=== PATIENT | female | born 1955 | race Caucasian/White ===

== ENCOUNTER 2016-08-08 10:33 | Emergency (ER) | payer OTHER ==
[~2016-08-08] VITALS: Ht 170.2 cm; Wt 84.1 kg
[~2016-08-08 10:33] MED LIST: IBUP200C5 PO; METF500T4 PO; OXYB5 PO; VICODIN
[2016-08-08] MEDS ORDERED: INSLAN SQ (10:46)
[2016-08-08] MEDS ORDERED: BUPR100T13 PO (10:46)
[2016-08-08] MEDS ORDERED: NICO2LOZ PO (10:46)
[2016-08-08] MEDS ORDERED: PIOG30TA2 PO (10:46)
[2016-08-08] MEDS ORDERED: ATOR20TA65 PO (10:46)
[2016-08-08] MEDS ORDERED: LISI1TAB11 PO (10:46)
[2016-08-08 10:47] LABS: GLUCOSE,POINT OF CARE 150 MG/DL (70-110)
[2016-08-08] MEDS ORDERED: SODIUM CHLORIDE 0.9% 1,000 ML IV ONE (11:00)
[2016-08-08] MEDS ORDERED: LOPERAMIDE HCL 2 MG CAPSULE PO ONE (11:00)
[2016-08-08] MEDS ORDERED: ONDANSETRON HCL 4 MG/2 ML VIAL IVP ONE (11:00)
[2016-08-08 11:50] LABS: BASOPHILS # (AUTO) 0.02 K/uL (0.00-0.20); BASOPHILS % (AUTO) 0.2 % (0.0-2.0); EOSINOPHILS # (AUTO) 0.09 K/uL (0.00-0.70); EOSINOPHILS % (AUTO) 0.77 % (1.0-6.0); HEMATOCRIT 44.8 % (36-46); HEMOGLOBIN 14.7 g/dL (12.0-16.0); LYMPHOCYTES # (AUTO) 2.4 K/uL (1.0-4.8); LYMPHOCYTES % (AUTO) 19.8 % (22.0-44.0); MEAN CORPUSCULAR HEMOGLOBIN 29.3 pg (26.0-34.0); MEAN CORPUSCULAR HGB CONC 32.9 G/dL (31.0-37.0); MEAN CORPUSCULAR VOLUME 89 fL (80-100); MONOCYTES # (AUTO) 0.4 K/uL (0.1-1.0); MONOCYTES % (AUTO) 3.6 % (2.0-9.0); NEUTROPHILS # (AUTO) 9.2 K/uL (1.8-7.7); NEUTROPHILS % (AUTO) 75.7 % (40.0-70.0); PLATELET COUNT (AUTO) 212 K/uL (150-450); RED BLOOD CELL COUNT(AUTO) 5.04 MIL/uL (4.00-5.20); RED CELL DISTRIBUTION WIDTH 13.2 % (11.5-14.5); WHITE BLOOD COUNT (AUTO) 12.1 K/uL (4.5-11.0)
[2016-08-08 12:02] LABS: CALCIUM, TOTAL 9.4 mg/dL (8.8-10.5); CREATININE 0.98 mg/dL (0.60-1.30); POTASSIUM 3.5 mmol/L (3.5-5.1)
[2016-08-08 12:08] LABS: ALBUMIN 3.5 g/dL (3.4-5.0); BILIRUBIN,TOTAL 0.3 mg/dL (0.1-1.0); TOTAL PROTEIN, SERUM 7.5 g/dL (6.4-8.2)
[2016-08-08] MEDS ORDERED: METOCLOPRAMIDE HCL 5 MG/ML 2 ML VIAL IVP ONE (13:00)
[2016-08-08 14:00] VITALS: BP 117/72
== END 2016-08-08 14:03 | disposition home or self-care (01) ==
LOC: EMS 10:35
DX: K52.9 Noninfective gastroenteritis and colitis, unspecified (principal); K21.9 Gastro-esophageal reflux disease without esophagitis; I10 Essential (primary) hypertension; J45.909 Unspecified asthma, uncomplicated; E11.9 Type 2 diabetes mellitus without complications; F17.210 Nicotine dependence, cigarettes, uncomplicated; Z88.5 Allergy status to narcotic agent; Z79.4 Long term (current) use of insulin
CPT/HCPCS: 36415; 80053; 82962; 85025; 96361; 96374; 96375; 99284; J2405; J2765; J7030

== ENCOUNTER 2016-09-27 10:45 | Emergency (ER) | payer OTHER ==
[~2016-09-27] VITALS: Ht 170.2 cm; Wt 90.0 kg
[~2016-09-27 10:45] MED LIST changes: +ATOR20TA65 PO; +BUPR100T13 PO; -IBUP200C5 PO; +INSLAN SQ; +LISI1TAB11 PO; +NICO2LOZ PO; -OXYB5 PO; +PIOG30TA2 PO; -VICODIN
[2016-09-27] MEDS ORDERED: PIOG30TA2 PO (11:00)
[2016-09-27] MEDS ORDERED: METF500T4 PO (11:00)
[2016-09-27] MEDS ORDERED: ATOR40TA28 PO (11:00)
[2016-09-27] MEDS ORDERED: ALBU8HFA4 IH (11:00)
[2016-09-27] MEDS ORDERED: INSLAN SQ (11:00)
[2016-09-27] MEDS ORDERED: OMEP20 PO (11:00)
[2016-09-27] MEDS ORDERED: CALC-51 PO (11:00)
[2016-09-27] MEDS ORDERED: LISI-660 PO (11:00)
[2016-09-27 11:06] LABS: GLUCOSE,POINT OF CARE 168 MG/DL (70-110)
[2016-09-27] MEDS ORDERED: HYDROCODONE/ACETAMINOPHEN 5-325 MG TABLET PO ONE (12:30)
[2016-09-27 13:58] VITALS: BP 139/79
== END 2016-09-27 14:02 | disposition home or self-care (01) ==
LOC: EMS 10:47
DX: S93.601A Unspecified sprain of right foot, initial encounter (principal); I10 Essential (primary) hypertension; K21.9 Gastro-esophageal reflux disease without esophagitis; E11.9 Type 2 diabetes mellitus without complications; J45.909 Unspecified asthma, uncomplicated; F17.210 Nicotine dependence, cigarettes, uncomplicated; Z79.4 Long term (current) use of insulin; X58.XXXA Exposure to other specified factors, initial encounter; Y93.89 Activity, other specified; Y92.89 Other specified places as the place of occurrence of the external cause; Y99.8 Other external cause status
CPT/HCPCS: 82962; 93971; 99284

== ENCOUNTER 2016-12-31 02:25 | Emergency (ER) | payer OTHER ==
[~2016-12-31] VITALS: Ht 170.2 cm; Wt 95.5 kg
[~2016-12-31 02:25] MED LIST changes: +ALBU8HFA4 IH; -ATOR20TA65 PO; +ATOR40TA28 PO; -BUPR100T13 PO; +CALC-1038 PO; +LISI-660 PO; -LISI1TAB11 PO; -NICO2LOZ PO; +OMEP20 PO; +PIOG30TA10 PO; -PIOG30TA2 PO
[2016-12-31 02:42] LABS: GLUCOSE,POINT OF CARE 277 MG/DL (70-110)
[2016-12-31] MEDS ORDERED: IBUPROFEN 600 MG TABLET PO ONE (03:30)
[2016-12-31] MEDS ORDERED: HYDROCODONE/ACETAMINOPHEN 5-325 MG TABLET PO ONE (03:30)
[2016-12-31 03:32] VITALS: BP 118/85
== END 2016-12-31 03:37 | disposition home or self-care (01) ==
LOC: EMS 02:27
DX: T50.B95A Adverse effect of other viral vaccines, initial encounter (principal); E11.65 Type 2 diabetes mellitus with hyperglycemia; K21.9 Gastro-esophageal reflux disease without esophagitis; I10 Essential (primary) hypertension; J45.909 Unspecified asthma, uncomplicated; F17.210 Nicotine dependence, cigarettes, uncomplicated; Z88.6 Allergy status to analgesic agent; Y92.89 Other specified places as the place of occurrence of the external cause
CPT/HCPCS: 82962; 99283

== ENCOUNTER 2017-04-11 16:09 | Emergency (ER) | payer OTHER ==
[~2017-04-11] VITALS: Ht 170.2 cm; Wt 90.5 kg
[2017-04-11 16:48] LABS: GLUCOSE,POINT OF CARE 305 MG/DL (70-110)
[2017-04-11 17:58] LABS: INFLUENZA TYPE A NEGATIVE FOR TYPE A (NEGATIVE); INFLUENZA TYPE B NEGATIVE FOR TYPE B (NEGATIVE)
[2017-04-11] MEDS ORDERED: SODIUM CHLORIDE 0.9% 1,000 ML IV ONE ×2 (19:45→21:15)
[2017-04-11 20:04] LABS: BASOPHILS % (AUTO) 0.1 % (0.0-2.0); EOSINOPHILS % (AUTO) 0.5 % (1.0-6.0); HEMATOCRIT 40.9 % (36-46); HEMOGLOBIN 13.9 g/dL (12.0-16.0); LYMPHOCYTES # (AUTO) 0.7 K/uL (1.0-4.8); LYMPHOCYTES % (AUTO) 9.5 % (22.0-44.0); MEAN CORPUSCULAR HEMOGLOBIN 30.5 pg (26.0-34.0); MEAN CORPUSCULAR HGB CONC 33.9 G/dL (31.0-37.0); MEAN CORPUSCULAR VOLUME 90 fL (80-100); MONOCYTES # (AUTO) 0.2 K/uL (0.1-1.0); MONOCYTES % (AUTO) 3.1 % (2.0-9.0); NEUTROPHILS # (AUTO) 6.8 K/uL (1.8-7.7); PLATELET COUNT (AUTO) 176 K/uL (150-450); RED BLOOD CELL COUNT(AUTO) 4.55 MIL/uL (4.00-5.20); RED CELL DISTRIBUTION WIDTH 13.4 % (11.5-14.5)
[2017-04-11 20:07] LABS: ANION GAP 11 mmol/L (8-16); CALCIUM, TOTAL 8.8 mg/dL (8.8-10.5); CARBON DIOXIDE 25 mmol/L (22-29); CHLORIDE 97 mmol/L (98-107); CREATININE 0.91 mg/dL (0.60-1.30); GLOMERULAR FILTR. RATE CALC > 60 mL/min (>60); GLUCOSE,RANDOM 363 mg/dL (70-110); POTASSIUM 3.4 mmol/L (3.5-5.1); SODIUM SERUM 133 mmol/L (136-145); UREA NITROGEN, BLOOD 9 mg/dL (7-18)
[2017-04-11 20:08] LABS: NEUTROPHILS % (AUTO) 86.8 % (40.0-70.0)
[2017-04-11 20:13] LABS: ALANINE AMINOTRANSFERASE 26 U/L (12-78); ALBUMIN 3.2 g/dL (3.4-5.0); ALKALINE PHOSPHATASE 107 U/L (46-116); ASPARTATE AMINOTRANSFERASE 18 U/L (15-37); BILIRUBIN,TOTAL 0.4 mg/dL (0.1-1.0); LIPASE 63 U/L (73-393); TOTAL PROTEIN, SERUM 6.9 g/dL (6.4-8.2)
[2017-04-11 20:30] VITALS: BP 124/83
[2017-04-11 20:47] LABS: GLUCOSE,POINT OF CARE 316 MG/DL (70-110)
[2017-04-11 21:39] LABS: APPEARANCE,URINE CLEAR (CLEAR); BILIRUBIN,URINE NEGATIVE (NEGATIVE); GLUCOSE, URINE (UA) >=1000 mg/dL (NEGATIVE); KETONES,URINE 15 mg/dL (NEGATIVE); LEUKOCYTE ESTERASE ,URINE NEGATIVE (NEGATIVE); NITRATE,URINE NEGATIVE (NEGATIVE); OCCULT BLOOD,URINE NEGATIVE (NEGATIVE); PROTEIN,URINE POS 1+ (NEGATIVE); UROBILINOGEN,URINE 0.2 mg/dL (<=1.0)
[2017-04-11 21:42] LABS: BACTERIA,URINE Rare /HPF (None Seen); RBC,URINE None Seen /HPF (0-2); SQUAMOUS EPITHELIAL CELL,UR Few /LPF (None Seen); WBC,URINE 0-2 /HPF (0-5)
== END 2017-04-11 21:30 | disposition left against medical advice (07) ==
LOC: EMS 16:11
DX: B34.9 Viral infection, unspecified (principal); E11.65 Type 2 diabetes mellitus with hyperglycemia; I10 Essential (primary) hypertension; K21.9 Gastro-esophageal reflux disease without esophagitis; J45.909 Unspecified asthma, uncomplicated; F17.210 Nicotine dependence, cigarettes, uncomplicated; Z88.5 Allergy status to narcotic agent; Z79.4 Long term (current) use of insulin; Z79.899 Other long term (current) drug therapy
CPT/HCPCS: 36415; 80053; 81001; 82009; 82962; 83690; 85025; 87804; 96360; 99284; J7030

== ENCOUNTER 2017-06-23 12:43 | Emergency (ER) | payer OTHER ==
[~2017-06-23] VITALS: Ht 170.2 cm; Wt 90.9 kg
[2017-06-23 12:46] VITALS: BP 153/86
[2017-06-23 12:58] LABS: GLUCOSE,POINT OF CARE 371 MG/DL (70-110)
[2017-06-23 13:29] LABS: BASOPHILS % (AUTO) 1.5 % (0.0-2.0); EOSINOPHILS % (AUTO) 1.7 % (1.0-6.0); HEMATOCRIT 40.2 % (36-46); HEMOGLOBIN 13.5 g/dL (12.0-16.0); LYMPHOCYTES # (AUTO) 2.2 K/uL (1.0-4.8); LYMPHOCYTES % (AUTO) 30.9 % (22.0-44.0); MEAN CORPUSCULAR HEMOGLOBIN 29.8 pg (26.0-34.0); MEAN CORPUSCULAR HGB CONC 33.5 G/dL (31.0-37.0); MEAN CORPUSCULAR VOLUME 89 fL (80-100); MONOCYTES # (AUTO) 0.4 K/uL (0.1-1.0); MONOCYTES % (AUTO) 5.8 % (2.0-9.0); NEUTROPHILS # (AUTO) 4.2 K/uL (1.8-7.7); NEUTROPHILS % (AUTO) 60.1 % (40.0-70.0); PLATELET COUNT (AUTO) 195 K/uL (150-450); RED BLOOD CELL COUNT(AUTO) 4.52 MIL/uL (4.00-5.20); RED CELL DISTRIBUTION WIDTH 13.6 % (11.5-14.5)
[2017-06-23 13:39] LABS: ANION GAP 11 mmol/L (8-16); CALCIUM, TOTAL 8.6 mg/dL (8.8-10.5); CARBON DIOXIDE 25 mmol/L (22-29); CHLORIDE 103 mmol/L (98-107); CREATININE 0.89 mg/dL (0.60-1.30); GLOMERULAR FILTR. RATE CALC > 60 mL/min (>60); GLUCOSE,RANDOM 349 mg/dL (70-110); POTASSIUM 3.8 mmol/L (3.5-5.1); SODIUM SERUM 139 mmol/L (136-145); UREA NITROGEN, BLOOD 12 mg/dL (7-18)
[2017-06-23 13:45] LABS: ALANINE AMINOTRANSFERASE 31 U/L (12-78); ALBUMIN 3.1 g/dL (3.4-5.0); ALKALINE PHOSPHATASE 97 U/L (46-116); ASPARTATE AMINOTRANSFERASE 21 U/L (15-37); BILIRUBIN,TOTAL 0.2 mg/dL (0.1-1.0); TOTAL PROTEIN, SERUM 6.3 g/dL (6.4-8.2)
[2017-06-23 13:47] LABS: B-TYPE NATRIURETIC PEPTIDE 47 pg/mL (0-100)
== END 2017-06-23 14:26 | disposition home or self-care (01) ==
LOC: EMS 12:45
DX: E11.65 Type 2 diabetes mellitus with hyperglycemia (principal); R07.89 Other chest pain; R60.0 Localized edema; J45.909 Unspecified asthma, uncomplicated; K21.9 Gastro-esophageal reflux disease without esophagitis; I10 Essential (primary) hypertension; F17.210 Nicotine dependence, cigarettes, uncomplicated; Z88.5 Allergy status to narcotic agent; Z79.4 Long term (current) use of insulin; Z71.6 Tobacco abuse counseling
CPT/HCPCS: 82962; 93005; 99285; 99406

== ENCOUNTER 2017-09-16 22:01 | Emergency (ER) | payer OTHER ==
[~2017-09-16] VITALS: Ht 170.2 cm; Wt 90.9 kg
[~2017-09-16 22:01] MED LIST changes: -METF500T4 PO; +METF500T6 PO
[2017-09-16] MEDS ORDERED: BUPR100 PO (22:17)
[2017-09-16] MEDS ORDERED: INSU100I26 SQ (22:17)
[2017-09-16] MEDS ORDERED: LISI1TAB11 PO (22:17)
[2017-09-16 22:25] LABS: GLUCOSE,POINT OF CARE 518 MG/DL (70-110)
[2017-09-16 22:49] LABS: BASOPHILS % (AUTO) 1.1 % (0.0-2.0); EOSINOPHILS % (AUTO) 3.3 % (1.0-6.0); HEMATOCRIT 42.2 % (36-46); HEMOGLOBIN 14.2 g/dL (12.0-16.0); LYMPHOCYTES # (AUTO) 2.1 K/uL (1.0-4.8); LYMPHOCYTES % (AUTO) 35.8 % (22.0-44.0); MEAN CORPUSCULAR HEMOGLOBIN 30.8 pg (26.0-34.0); MEAN CORPUSCULAR HGB CONC 33.7 G/dL (31.0-37.0); MEAN CORPUSCULAR VOLUME 91 fL (80-100); MONOCYTES # (AUTO) 0.4 K/uL (0.1-1.0); MONOCYTES % (AUTO) 6.5 % (2.0-9.0); NEUTROPHILS # (AUTO) 3.1 K/uL (1.8-7.7); NEUTROPHILS % (AUTO) 53.3 % (40.0-70.0); PLATELET COUNT (AUTO) 197 K/uL (150-450); RED BLOOD CELL COUNT(AUTO) 4.61 MIL/uL (4.00-5.20); RED CELL DISTRIBUTION WIDTH 13.1 % (11.5-14.5)
[2017-09-16 22:51] LABS: APPEARANCE,URINE CLEAR (CLEAR); BILIRUBIN,URINE NEGATIVE (NEGATIVE); GLUCOSE, URINE (UA) >=1000 mg/dL (NEGATIVE); KETONES,URINE NEGATIVE (NEGATIVE); LEUKOCYTE ESTERASE ,URINE NEGATIVE (NEGATIVE); NITRATE,URINE NEGATIVE (NEGATIVE); OCCULT BLOOD,URINE NEGATIVE (NEGATIVE); PROTEIN,URINE NEGATIVE (NEGATIVE); UROBILINOGEN,URINE 0.2 mg/dL (<=1.0)
[2017-09-16 22:53] LABS: BACTERIA,URINE Rare /HPF (None Seen); RBC,URINE 0-2 /HPF (0-2); SQUAMOUS EPITHELIAL CELL,UR Few /LPF (None Seen); WBC,URINE 0-2 /HPF (0-5)
[2017-09-16 23:09] LABS: ALBUMIN 3.2 g/dL (3.4-5.0); BILIRUBIN,TOTAL 0.2 mg/dL (0.1-1.0); CALCIUM, TOTAL 8.2 mg/dL (8.8-10.5); TOTAL PROTEIN, SERUM 6.5 g/dL (6.4-8.2)
[2017-09-16] MEDS ORDERED: SODIUM CHLORIDE 0.9% 1,000 ML IV ONE (23:45)
[2017-09-16] MEDS ORDERED: INSULIN REGULAR, HUMAN 100 UNITS/ML IVP ONE (23:45)
[2017-09-17 01:05] LABS: GLUCOSE,POINT OF CARE 197 MG/DL (70-110)
[2017-09-17 01:07] VITALS: BP 135/70
== END 2017-09-17 01:32 | disposition home or self-care (01) ==
LOC: EMS 22:03
DX: E11.65 Type 2 diabetes mellitus with hyperglycemia (principal); R10.13 Epigastric pain; E66.9 Obesity, unspecified; J45.909 Unspecified asthma, uncomplicated; I10 Essential (primary) hypertension; F17.210 Nicotine dependence, cigarettes, uncomplicated; K21.9 Gastro-esophageal reflux disease without esophagitis; Z68.31 Body mass index [BMI] 31.0-31.9, adult; Z88.5 Allergy status to narcotic agent; Z79.4 Long term (current) use of insulin
CPT/HCPCS: 36415; 80053; 81001; 82962; 83690; 84484; 85025; 93005; 96361; 96374; 99285; J1815; J7030

== ENCOUNTER 2018-02-08 07:41 | Emergency (ER) | payer OTHER ==
[~2018-02-08] VITALS: Ht 170.2 cm; Wt 79.5 kg
[~2018-02-08 07:41] MED LIST changes: +BUPR100 PO; -INSLAN SQ; +INSU100I26 SQ; +LISI1TAB11 PO; +METF-960 PO; -METF500T6 PO
[2018-02-08 07:47] VITALS: BP 117/76
[2018-02-08 07:53] LABS: GLUCOSE,POINT OF CARE 360 MG/DL (70-110)
== END 2018-02-08 08:46 | disposition left against medical advice (07) ==
LOC: EMS 07:42
DX: L29.9 Pruritus, unspecified (principal); J45.909 Unspecified asthma, uncomplicated; E11.9 Type 2 diabetes mellitus without complications; K21.9 Gastro-esophageal reflux disease without esophagitis; I10 Essential (primary) hypertension; F17.210 Nicotine dependence, cigarettes, uncomplicated; G89.29 Other chronic pain; Z98.890 Other specified postprocedural states

== ENCOUNTER 2018-07-20 19:41 | Emergency (ER) | payer OTHER ==
[~2018-07-20] VITALS: Ht 170.2 cm; Wt 75.0 kg
[~2018-07-20 19:41] MED LIST changes: -LISI1TAB11 PO
[2018-07-20] MEDS ORDERED: OXYB5 PO (20:41)
[2018-07-20 20:43] LABS: GLUCOSE,POINT OF CARE 522 MG/DL (70-110)
[2018-07-20] MEDS ORDERED: INSULIN REGULAR, HUMAN 100 UNITS/ML SQ ONE (21:00)
[2018-07-20 21:27] LABS: EOSINOPHILS % (AUTO) 2.1 % (1.0-6.0); HEMATOCRIT 44.3 % (36-46); HEMOGLOBIN 14.5 g/dL (12.0-16.0); LYMPHOCYTES # (AUTO) 2.4 K/uL (1.0-4.8); LYMPHOCYTES % (AUTO) 37.3 % (22.0-44.0); MEAN CORPUSCULAR HEMOGLOBIN 30.1 pg (26.0-34.0); MEAN CORPUSCULAR HGB CONC 32.7 G/dL (31.0-37.0); MEAN CORPUSCULAR VOLUME 92 fL (80-100); MONOCYTES # (AUTO) 0.4 K/uL (0.1-1.0); MONOCYTES % (AUTO) 6.7 % (2.0-9.0); NEUTROPHILS # (AUTO) 3.4 K/uL (1.8-7.7); NEUTROPHILS % (AUTO) 52.9 % (40.0-70.0); PLATELET COUNT (AUTO) 216 K/uL (150-450); RED BLOOD CELL COUNT(AUTO) 4.81 MIL/uL (4.00-5.20); RED CELL DISTRIBUTION WIDTH 12.9 % (11.5-14.5)
[2018-07-20 21:44] LABS: ALANINE AMINOTRANSFERASE 32 U/L (12-78); ALBUMIN 3.4 g/dL (3.4-5.0); ALKALINE PHOSPHATASE 116 U/L (46-116); ANION GAP 11 mmol/L (8-16); ASPARTATE AMINOTRANSFERASE 17 U/L (15-37); BILIRUBIN,TOTAL 0.2 mg/dL (0.1-1.0); CALCIUM, TOTAL 9.1 mg/dL (8.8-10.5); CARBON DIOXIDE 24 mmol/L (22-29); CHLORIDE 100 mmol/L (98-107); CREATININE 0.81 mg/dL (0.60-1.30); GLOMERULAR FILTR. RATE CALC > 60 mL/min (>60); POTASSIUM 3.4 mmol/L (3.5-5.1); SODIUM SERUM 135 mmol/L (136-145); TOTAL PROTEIN, SERUM 6.9 g/dL (6.4-8.2); UREA NITROGEN, BLOOD 10 mg/dL (7-18)
[2018-07-20 21:53] LABS: GLUCOSE,RANDOM 470 mg/dL (70-110)
[2018-07-20] MEDS ORDERED: KETOROLAC TROMETHAMINE 60 MG/2 ML VIAL IM ONE (22:30)
[2018-07-20 23:09] LABS: GLUCOSE,POINT OF CARE 364 MG/DL (70-110)
[2018-07-20 23:11] VITALS: BP 142/79
== END 2018-07-20 23:23 | disposition home or self-care (01) ==
LOC: EMS 19:42
DX: S20.212A Contusion of left front wall of thorax, initial encounter (principal); E11.65 Type 2 diabetes mellitus with hyperglycemia; I10 Essential (primary) hypertension; K21.9 Gastro-esophageal reflux disease without esophagitis; J45.909 Unspecified asthma, uncomplicated; F17.210 Nicotine dependence, cigarettes, uncomplicated; Z88.5 Allergy status to narcotic agent; W01.0XXA Fall on same level from slipping, tripping and stumbling without subsequent striking against object, initial encounter; Y93.89 Activity, other specified; Y92.89 Other specified places as the place of occurrence of the external cause; Y99.8 Other external cause status
CPT/HCPCS: 36415; 71101; 80053; 82962; 84484; 85025; 96372; 99284; 99406; J1815; J1885

== ENCOUNTER 2018-10-01 12:58 | Emergency (ER) | payer OTHER ==
[~2018-10-01] VITALS: Ht 170.2 cm; Wt 72.7 kg
[~2018-10-01 12:58] MED LIST changes: -ATOR40TA28 PO; -BUPR100 PO; -CALC-1038 PO; -INSU100I26 SQ; -LISI-660 PO; -METF-960 PO; -OMEP20 PO; +OXYB5 PO; -PIOG30TA10 PO
[2018-10-01] MEDS ORDERED: LISI-660 PO (13:18)
[2018-10-01 13:19] LABS: GLUCOSE,POINT OF CARE 497 MG/DL (70-110)
[2018-10-01] MEDS ORDERED: KETOROLAC TROMETHAMINE 30 MG/ML VIAL IVP ONE (13:45)
[2018-10-01] MEDS ORDERED: SODIUM CHLORIDE 0.9% 1,000 ML IV ONE (13:45)
[2018-10-01] MEDS ORDERED: INSULIN REGULAR, HUMAN 100 UNITS/ML IVP ONE (13:45)
[2018-10-01 13:53] LABS: BASOPHILS % (AUTO) 0.9 % (0.0-2.0); EOSINOPHILS % (AUTO) 1.6 % (1.0-6.0); HEMATOCRIT 44.9 % (36-46); HEMOGLOBIN 14.7 g/dL (12.0-16.0); LYMPHOCYTES # (AUTO) 1.7 K/uL (1.0-4.8); LYMPHOCYTES % (AUTO) 25.9 % (22.0-44.0); MEAN CORPUSCULAR HEMOGLOBIN 29.9 pg (26.0-34.0); MEAN CORPUSCULAR HGB CONC 32.7 G/dL (31.0-37.0); MEAN CORPUSCULAR VOLUME 91 fL (80-100); MONOCYTES # (AUTO) 0.4 K/uL (0.1-1.0); MONOCYTES % (AUTO) 6.6 % (2.0-9.0); NEUTROPHILS # (AUTO) 4.3 K/uL (1.8-7.7); PLATELET COUNT (AUTO) 202 K/uL (150-450); RED BLOOD CELL COUNT(AUTO) 4.91 MIL/uL (4.00-5.20); RED CELL DISTRIBUTION WIDTH 13.2 % (11.5-14.5)
[2018-10-01 14:16] LABS: ALBUMIN 2.8 g/dL (3.4-5.0); BILIRUBIN,TOTAL 0.3 mg/dL (0.1-1.0); CALCIUM, TOTAL 8.5 mg/dL (8.8-10.5); CREATININE 1.01 mg/dL (0.60-1.30); POTASSIUM 4.1 mmol/L (3.5-5.1); TOTAL PROTEIN, SERUM 6.4 g/dL (6.4-8.2)
[2018-10-01 15:49] LABS: GLUCOSE,POINT OF CARE 313 MG/DL (70-110)
[2018-10-01 15:59] LABS: APPEARANCE,URINE CLEAR (CLEAR); BILIRUBIN,URINE NEGATIVE (NEGATIVE); GLUCOSE, URINE (UA) >=1000 mg/dL (NEGATIVE); KETONES,URINE NEGATIVE (NEGATIVE); LEUKOCYTE ESTERASE ,URINE NEGATIVE (NEGATIVE); NITRATE,URINE NEGATIVE (NEGATIVE); OCCULT BLOOD,URINE NEGATIVE (NEGATIVE); PROTEIN,URINE NEGATIVE (NEGATIVE); UROBILINOGEN,URINE 0.2 mg/dL (<=1.0)
[2018-10-01 16:21] LABS: BACTERIA,URINE None Seen /HPF (None Seen); RBC,URINE 0-2 /HPF (0-2)
[2018-10-01 16:22] LABS: SQUAMOUS EPITHELIAL CELL,UR Few /LPF (None Seen)
[2018-10-01] MEDS ORDERED: FLUCONAZOLE 150 MG TABLET PO ONE (16:45)
[2018-10-01 16:55] VITALS: BP 118/81
== END 2018-10-01 17:13 | disposition home or self-care (01) ==
LOC: EMS 13:00
DX: E11.65 Type 2 diabetes mellitus with hyperglycemia (principal); N89.8 Other specified noninflammatory disorders of vagina; I10 Essential (primary) hypertension; G89.29 Other chronic pain; J45.909 Unspecified asthma, uncomplicated; K21.9 Gastro-esophageal reflux disease without esophagitis; F17.210 Nicotine dependence, cigarettes, uncomplicated; Z96.651 Presence of right artificial knee joint; Z88.5 Allergy status to narcotic agent; Z79.899 Other long term (current) drug therapy
CPT/HCPCS: 36415; 80053; 81001; 82962; 83690; 85025; 96361; 96374; 96375; 99284; 99406; J1815; J1885; J7030; 51701; 82948

== ENCOUNTER 2019-01-31 09:18 | Inpatient (IN) | payer OTHER ==
[~2019-01-31] VITALS: Ht 165.1 cm; Wt 72.3 kg
[~2019-01-31 09:18] MED LIST changes: +LISI-660 PO
[2019-01-31] MEDS ORDERED: INSNPH SQ (09:26)
[2019-01-31] MEDS ORDERED: KETOROLAC TROMETHAMINE 30 MG/ML VIAL IVP ONE (10:15)
[2019-01-31] MEDS ORDERED: SODIUM CHLORIDE 0.9% 1,000 ML IV ONE ×5 (10:15→16:00)
[2019-01-31 10:17] LABS: BASOPHILS % (AUTO) 0.6 % (0.0-2.0); EOSINOPHILS % (AUTO) 0.1 % (1.0-6.0); HEMATOCRIT 46.6 % (36-46); HEMOGLOBIN 15.6 g/dL (12.0-16.0); LYMPHOCYTES # (AUTO) 1.2 K/uL (1.0-4.8); LYMPHOCYTES % (AUTO) 7.5 % (22.0-44.0); MEAN CORPUSCULAR HEMOGLOBIN 30.3 pg (26.0-34.0); MEAN CORPUSCULAR HGB CONC 33.4 G/dL (31.0-37.0); MEAN CORPUSCULAR VOLUME 91 fL (80-100); MONOCYTES % (AUTO) 6.7 % (2.0-9.0); NEUTROPHILS # (AUTO) 13.3 K/uL (1.8-7.7); NEUTROPHILS % (AUTO) 85.1 % (40.0-70.0); PLATELET COUNT (AUTO) 199 K/uL (150-450); RED BLOOD CELL COUNT(AUTO) 5.14 MIL/uL (4.00-5.20); RED CELL DISTRIBUTION WIDTH 12.6 % (11.5-14.5)
[2019-01-31 10:26] LABS: APPEARANCE,URINE CLOUDY (CLEAR); BILIRUBIN,URINE NEGATIVE (NEGATIVE); GLUCOSE, URINE (UA) >=1000 mg/dL (NEGATIVE); KETONES,URINE TRACE mg/dL (NEGATIVE); LEUKOCYTE ESTERASE ,URINE NEGATIVE (NEGATIVE); NITRATE,URINE NEGATIVE (NEGATIVE); OCCULT BLOOD,URINE SMALL (NEGATIVE); PROTEIN,URINE POS 1+ (NEGATIVE)
[2019-01-31 10:32] LABS: ALBUMIN 3.3 g/dL (3.4-5.0); BILIRUBIN,TOTAL 0.7 mg/dL (0.1-1.0); CREATININE 0.95 mg/dL (0.60-1.30); POTASSIUM 3.2 mmol/L (3.5-5.1); TOTAL PROTEIN, SERUM 7.4 g/dL (6.4-8.2)
[2019-01-31 10:41] LABS: BACTERIA,URINE Many /HPF (None Seen); RBC,URINE 0-2 /HPF (0-2); SQUAMOUS EPITHELIAL CELL,UR Few /LPF (None Seen); WBC,URINE 26-50 /HPF (0-5)
[2019-01-31 11:26] LABS: GLUCOSE,POINT OF CARE 451 MG/DL (70-110)
[2019-01-31] MEDS ORDERED: CIPROFLOXACIN HCL 250 MG TABLET PO ONE (11:30)
[2019-01-31] MEDS ORDERED: POTASSIUM CHLORIDE 20 MEQ ER TABLET PO ONE (11:30)
[2019-01-31] MEDS ORDERED: INSULIN REGULAR, HUMAN 100 UNITS/ML IVP ONE (11:30)
[2019-01-31] MEDS ORDERED: CefTRIAXone 1 GM/DEXTROSE 50 ML IV ONE (11:30)
[2019-01-31 12:41] LABS: GLUCOSE,POINT OF CARE 448 MG/DL (70-110)
[2019-01-31] MEDS ORDERED: ALBU8HFA IH (13:38)
[2019-01-31] MEDS ORDERED: PIPERACILLIN/TAZO 3.375 GM/D5W 50 ML IV ONE (13:45)
[2019-01-31] MEDS ORDERED: ACETAMINOPHEN 1000 MG/ISO-OSM 100 ML IV ONE (13:45)
[2019-01-31] MEDS ORDERED: LORazepam 2 MG/ML VIAL ONE (14:06)
[2019-01-31] MEDS ORDERED: LORazepam 2 MG/ML VIAL IVP ONE (14:15)
[2019-01-31 15:35] LABS: LACTIC ACID 2.7 mmol/L (0.4-2.0)
[2019-01-31] MEDS ORDERED: IPRATROPIUM BROMIDE 0.5 MG/2.5 ML NEB SOLUTION NEB PRN (15:45)
[2019-01-31] MEDS ORDERED: BISACODYL 10 MG RECTAL RECTAL SUPPOSITORY PR PRN (15:45)
[2019-01-31] MEDS ORDERED: MORPHINE SULFATE 2 MG/ML SYRINGE IVP PRN (15:45)
[2019-01-31] MEDS ORDERED: ALBUTEROL SULFATE 2.5 MG/0.5 ML NEB SOLUTION NEB PRN (15:45)
[2019-01-31] MEDS ORDERED: ZOLPIDEM TARTRATE 5 MG TABLET PO PRN (15:45)
[2019-01-31] MEDS ORDERED: MAGNESIUM HYDROXIDE SUSPENSION 30 ML UDCUP PO PRN (15:45)
[2019-01-31] MEDS ORDERED: HYDROCODONE/ACETAMINOPHEN 5-325 MG TABLET PO PRN (15:45)
[2019-01-31] MEDS ORDERED: ONDANSETRON HCL 4 MG/2 ML VIAL IVP PRN (15:45)
[2019-01-31 16:09] LABS: HEMATOCRIT 42.3 % (36-46); HEMOGLOBIN 14.1 g/dL (12.0-16.0); MEAN CORPUSCULAR HGB CONC 33.2 G/dL (31.0-37.0); MEAN CORPUSCULAR VOLUME 91 fL (80-100); PLATELET COUNT (AUTO) 149 K/uL (150-450); RED BLOOD CELL COUNT(AUTO) 4.68 MIL/uL (4.00-5.20); RED CELL DISTRIBUTION WIDTH 12.7 % (11.5-14.5)
[2019-01-31 16:15] LABS: CREATININE 0.95 mg/dL (0.60-1.30); POTASSIUM 3.1 mmol/L (3.5-5.1)
[2019-01-31 16:40] LABS: ALBUMIN 2.6 g/dL (3.4-5.0); BILIRUBIN,TOTAL 0.9 mg/dL (0.1-1.0); TOTAL PROTEIN, SERUM 6.4 g/dL (6.4-8.2)
[2019-01-31 16:56] LABS: GLUCOSE,POINT OF CARE 302 MG/DL (70-110)
[2019-01-31 17:02] LABS: BAND NEUTROPHILS % (MANUAL) 17 % (0-5); LYMPHOCYTES % (MANUAL) 10 % (22-44); MONOCYTES % (MANUAL) 2 % (2-9); SEGMENTED NEUTROPHILS % 71 % (40-70)
[2019-01-31] MEDS ORDERED: DEXTROSE 50%-WATER 25 GM/50 ML SYRINGE IVP PRN (17:15)
[2019-01-31] MEDS: INSULIN LISPRO 100 UNITS/ML SQ PRN ×2 (18:45→21:05)
[2019-01-31] MEDS: HEPARIN SODIUM,PORCINE 5,000 UNITS/ML VIAL SQ SCH (18:46)
[2019-01-31] MEDS: SODIUM CHLORIDE 0.9% 1,000 ML IV SCH (18:47)
[2019-01-31 18:52] VITALS: BP 112/66
[2019-01-31 19:47] VITALS: BP 111/69
[2019-01-31 20:07] LABS: GLUCOMETER DEV NAME(LOC) 5S.1; GLUCOSE,POINT OF CARE 285 MG/DL (70-110)
[2019-01-31] MEDS: DOCUSATE SODIUM 100 MG CAPSULE PO SCH (20:47)
[2019-01-31] MEDS: PIPERACILLIN/TAZO 3.375 GM/D5W 50 ML IV SCH (20:47)
[2019-01-31] MEDS: ACETAMINOPHEN 325 MG TABLET PO PRN (20:55)
[2019-01-31 23:54] VITALS: BP 115/62
[2019-02-01] MEDS: HEPARIN SODIUM,PORCINE 5,000 UNITS/ML VIAL SQ SCH ×4 (00:24→23:50)
[2019-02-01] MEDS: PIPERACILLIN/TAZO 3.375 GM/D5W 50 ML IV SCH ×4 (03:23→20:33)
[2019-02-01] MEDS: SODIUM CHLORIDE 0.9% 1,000 ML IV SCH ×3 (03:23→22:06)
[2019-02-01 05:05] VITALS: BP 136/63
[2019-02-01] MEDS: INSULIN LISPRO 100 UNITS/ML SQ PRN ×4 (06:16→22:16)
[2019-02-01 07:01] LABS: BASOPHILS % (AUTO) 0.6 % (0.0-2.0); EOSINOPHILS % (AUTO) 0.1 % (1.0-6.0); HEMOGLOBIN 14.6 g/dL (12.0-16.0); LYMPHOCYTES # (AUTO) 0.8 K/uL (1.0-4.8); LYMPHOCYTES % (AUTO) 8.3 % (22.0-44.0); MEAN CORPUSCULAR HEMOGLOBIN 30.9 pg (26.0-34.0); MEAN CORPUSCULAR VOLUME 91 fL (80-100); MONOCYTES # (AUTO) 0.5 K/uL (0.1-1.0); MONOCYTES % (AUTO) 5.5 % (2.0-9.0); NEUTROPHILS # (AUTO) 8.6 K/uL (1.8-7.7); PLATELET COUNT (AUTO) 157 K/uL (150-450); RED BLOOD CELL COUNT(AUTO) 4.73 MIL/uL (4.00-5.20)
[2019-02-01 07:08] LABS: NEUTROPHILS % (AUTO) 85.5 % (40.0-70.0)
[2019-02-01 07:13] VITALS: BP 101/63
[2019-02-01 07:31] LABS: ALANINE AMINOTRANSFERASE 31 U/L (12-78); ALBUMIN 2.3 g/dL (3.4-5.0); ALKALINE PHOSPHATASE 102 U/L (46-116); ANION GAP 12 mmol/L (8-16); ASPARTATE AMINOTRANSFERASE 39 U/L (15-37); BILIRUBIN,TOTAL 0.6 mg/dL (0.1-1.0); CALCIUM, TOTAL 7.8 mg/dL (8.8-10.5); CARBON DIOXIDE 22 mmol/L (22-29); CHLORIDE 102 mmol/L (98-107); CREATININE 0.77 mg/dL (0.60-1.30); GLOMERULAR FILTR. RATE CALC > 60 mL/min (>60); GLUCOSE,RANDOM 239 mg/dL (70-110); POTASSIUM 3.2 mmol/L (3.5-5.1); SODIUM SERUM 136 mmol/L (136-145); UREA NITROGEN, BLOOD 7 mg/dL (7-18)
[2019-02-01 07:41] LABS: GLUCOMETER DEV NAME(LOC) 5S.1; GLUCOSE,POINT OF CARE 270 MG/DL (70-110)
[2019-02-01] MEDS: DOCUSATE SODIUM 100 MG CAPSULE PO SCH ×2 (08:14→20:33)
[2019-02-01] MEDS ORDERED: POTASSIUM CHLORIDE 20 MEQ ER TABLET PO ONE (10:15)
[2019-02-01 12:00] VITALS: BP 142/74
[2019-02-01 12:11] LABS: GLUCOMETER DEV NAME(LOC) 5N.2; GLUCOSE,POINT OF CARE 199 MG/DL (70-110)
[2019-02-01 15:30] VITALS: BP 124/70
[2019-02-01] MEDS: ACETAMINOPHEN 325 MG TABLET PO PRN ×2 (15:44→22:17)
[2019-02-01 20:15] VITALS: BP 135/75
[2019-02-01] MEDS: TAMSULOSIN HCL 0.4 MG CAPSULE PO SCH (20:33)
[2019-02-02] VITALS (7 sets, daily range): BP systolic 119–150; BP diastolic 63–83
[2019-02-02] MEDS ORDERED: POTASSIUM CHLORIDE 20 MEQ ER TABLET PO ONE (01:15)
[2019-02-02] MEDS: PIPERACILLIN/TAZO 3.375 GM/D5W 50 ML IV SCH ×4 (01:22→20:47)
[2019-02-02] MEDS: INSULIN LISPRO 100 UNITS/ML SQ PRN ×4 (06:46→21:03)
[2019-02-02 07:16] LABS: BASOPHILS % (AUTO) 0.9 % (0.0-2.0); EOSINOPHILS % (AUTO) 0.3 % (1.0-6.0); HEMATOCRIT 40.7 % (36-46); HEMOGLOBIN 13.7 g/dL (12.0-16.0); LYMPHOCYTES # (AUTO) 0.9 K/uL (1.0-4.8); LYMPHOCYTES % (AUTO) 10.9 % (22.0-44.0); MEAN CORPUSCULAR HEMOGLOBIN 30.5 pg (26.0-34.0); MEAN CORPUSCULAR HGB CONC 33.7 G/dL (31.0-37.0); MEAN CORPUSCULAR VOLUME 91 fL (80-100); MONOCYTES # (AUTO) 0.5 K/uL (0.1-1.0); MONOCYTES % (AUTO) 6.3 % (2.0-9.0); NEUTROPHILS % (AUTO) 81.6 % (40.0-70.0); PLATELET COUNT (AUTO) 154 K/uL (150-450); RED CELL DISTRIBUTION WIDTH 12.7 % (11.5-14.5)
[2019-02-02 07:43] LABS: ALANINE AMINOTRANSFERASE 25 U/L (12-78); ALBUMIN 2.1 g/dL (3.4-5.0); ALKALINE PHOSPHATASE 104 U/L (46-116); ANION GAP 12 mmol/L (8-16); ASPARTATE AMINOTRANSFERASE 30 U/L (15-37); BILIRUBIN,TOTAL 0.4 mg/dL (0.1-1.0); CALCIUM, TOTAL 8.2 mg/dL (8.8-10.5); CARBON DIOXIDE 23 mmol/L (22-29); CHLORIDE 102 mmol/L (98-107); CREATININE 0.68 mg/dL (0.60-1.30); GLOMERULAR FILTR. RATE CALC > 60 mL/min (>60); GLUCOSE,RANDOM 168 mg/dL (70-110); POTASSIUM 3.4 mmol/L (3.5-5.1); SODIUM SERUM 137 mmol/L (136-145); UREA NITROGEN, BLOOD 4 mg/dL (7-18)
[2019-02-02] MEDS: TAMSULOSIN HCL 0.4 MG CAPSULE PO SCH ×2 (08:16→20:47)
[2019-02-02] MEDS: DOCUSATE SODIUM 100 MG CAPSULE PO SCH ×2 (08:16→20:47)
[2019-02-02] MEDS: SODIUM CHLORIDE 0.9% 1,000 ML IV SCH (08:17)
[2019-02-02] MEDS: HEPARIN SODIUM,PORCINE 5,000 UNITS/ML VIAL SQ SCH ×2 (08:18→15:22)
[2019-02-02] MEDS ORDERED: SODIUM CHLORIDE 0.9% 500 ML IV ONE (11:00)
[2019-02-02 11:46] LABS: GLUCOMETER DEV NAME(LOC) 5N.1; GLUCOSE,POINT OF CARE 267 MG/DL (70-110)
[2019-02-02] MEDS ORDERED: POTASSIUM CHL 10 MEQ/WATER 50 ML IV PRN (13:15)
[2019-02-02] MEDS: POTASSIUM CHLORIDE 20 MEQ ER TABLET PO PRN ×2 (15:22→23:59)
[2019-02-02 21:26] LABS: GLUCOMETER DEV NAME(LOC) 5S.1; GLUCOSE,POINT OF CARE 236 MG/DL (70-110)
[2019-02-02 21:26] LABS: GLUCOMETER DEV NAME(LOC) 5S.1; GLUCOSE,POINT OF CARE 163 MG/DL (70-110)
[2019-02-02 21:26] LABS: GLUCOMETER DEV NAME(LOC) 5S.1; GLUCOSE,POINT OF CARE 223 MG/DL (70-110)
[2019-02-02 22:42] LABS: GLUCOMETER DEV NAME(LOC) 5N.2; GLUCOSE,POINT OF CARE 176 MG/DL (70-110)
[2019-02-03] MEDS: ACETAMINOPHEN 325 MG TABLET PO PRN (00:03)
[2019-02-03] MEDS: PIPERACILLIN/TAZO 3.375 GM/D5W 50 ML IV SCH ×3 (02:39→14:24)
[2019-02-03 04:19] VITALS: BP 121/66
[2019-02-03] MEDS: INSULIN LISPRO 100 UNITS/ML SQ PRN ×2 (06:38→11:33)
[2019-02-03 06:42] LABS: BASOPHILS % (AUTO) 1.1 % (0.0-2.0); LYMPHOCYTES # (AUTO) 1.3 K/uL (1.0-4.8); MEAN CORPUSCULAR HEMOGLOBIN 30.7 pg (26.0-34.0); MEAN CORPUSCULAR HGB CONC 34.2 G/dL (31.0-37.0); MEAN CORPUSCULAR VOLUME 90 fL (80-100); MONOCYTES # (AUTO) 0.7 K/uL (0.1-1.0); MONOCYTES % (AUTO) 11.3 % (2.0-9.0); NEUTROPHILS # (AUTO) 4.4 K/uL (1.8-7.7); NEUTROPHILS % (AUTO) 67.6 % (40.0-70.0); PLATELET COUNT (AUTO) 196 K/uL (150-450); RED BLOOD CELL COUNT(AUTO) 4.24 MIL/uL (4.00-5.20); RED CELL DISTRIBUTION WIDTH 12.9 % (11.5-14.5)
[2019-02-03 06:57] LABS: GLUCOMETER DEV NAME(LOC) 5S.2A; GLUCOSE,POINT OF CARE 218 MG/DL (70-110)
[2019-02-03 06:57] LABS: GLUCOMETER DEV NAME(LOC) 5S.2A; GLUCOSE,POINT OF CARE 160 MG/DL (70-110)
[2019-02-03 07:17] LABS: ALANINE AMINOTRANSFERASE 23 U/L (12-78); ALBUMIN 2.1 g/dL (3.4-5.0); ALKALINE PHOSPHATASE 95 U/L (46-116); ANION GAP 10 mmol/L (8-16); ASPARTATE AMINOTRANSFERASE 24 U/L (15-37); BILIRUBIN,TOTAL 0.4 mg/dL (0.1-1.0); CALCIUM, TOTAL 8.2 mg/dL (8.8-10.5); CARBON DIOXIDE 24 mmol/L (22-29); CHLORIDE 102 mmol/L (98-107); CREATININE 0.73 mg/dL (0.60-1.30); GLOMERULAR FILTR. RATE CALC > 60 mL/min (>60); GLUCOSE,RANDOM 201 mg/dL (70-110); POTASSIUM 3.6 mmol/L (3.5-5.1); SODIUM SERUM 136 mmol/L (136-145); TOTAL PROTEIN, SERUM 6.1 g/dL (6.4-8.2)
[2019-02-03 07:25] LABS: UREA NITROGEN, BLOOD 7 mg/dL (7-18)
[2019-02-03 07:42] VITALS: BP 144/63
[2019-02-03] MEDS: HEPARIN SODIUM,PORCINE 5,000 UNITS/ML VIAL SQ SCH ×2 (08:18)
[2019-02-03] MEDS: TAMSULOSIN HCL 0.4 MG CAPSULE PO SCH (08:18)
[2019-02-03] MEDS: DOCUSATE SODIUM 100 MG CAPSULE PO SCH (08:23)
[2019-02-03 11:45] VITALS: BP 121/61
[2019-02-03] MEDS ORDERED: GADOBUTROL 1 MMOL/ML 10 ML VIAL IVP ONE (14:10)
[2019-02-03 15:29] VITALS: BP 121/61
[2019-02-03] MEDS ORDERED: TAMS-13 PO (15:30)
[2019-02-03] MEDS ORDERED: CEPH500 PO (15:30)
[2019-02-03 16:56] LABS: GLUCOMETER DEV NAME(LOC) 5S.1; GLUCOSE,POINT OF CARE 233 MG/DL (70-110)
[2019-02-03 16:56] LABS: GLUCOMETER DEV NAME(LOC) 5S.1; GLUCOSE,POINT OF CARE 230 MG/DL (70-110)
== END 2019-02-03 16:20 | disposition home or self-care (01) | DRG 720 ==
LOC: EMS 09:18 → 6N 13:28 → 5S 13:29 → 5N 02-02 16:25
PROVIDERS: ADMIT Hospitalist; ATTEND Hospitalist
DX: A41.9 Sepsis, unspecified organism (principal); E43 Unspecified severe protein-calorie malnutrition; G92 Toxic encephalopathy; N13.6 Pyonephrosis; E11.65 Type 2 diabetes mellitus with hyperglycemia; I10 Essential (primary) hypertension; K21.9 Gastro-esophageal reflux disease without esophagitis; N32.89 Other specified disorders of bladder; F17.200 Nicotine dependence, unspecified, uncomplicated; J45.909 Unspecified asthma, uncomplicated; Z96.651 Presence of right artificial knee joint; F17.210 Nicotine dependence, cigarettes, uncomplicated; G89.29 Other chronic pain; M54.2 Cervicalgia; B96.20 Unspecified Escherichia coli [E. coli] as the cause of diseases classified elsewhere; M79.602 Pain in left arm; R00.0 Tachycardia, unspecified; Z98.891 History of uterine scar from previous surgery; Z88.6 Allergy status to analgesic agent; Z90.49 Acquired absence of other specified parts of digestive tract
CPT/HCPCS: 70450; 74176; 74183; 76705; 83605; 84132; 87040; 87086; 93005; 97161; A9585; J0131; J0696; J1644; J1815; J1885; J2060; J2543; J7030